=== PATIENT | male | born 1955 | race African-American/Black ===

== ENCOUNTER 2025-03-03 12:47 | Inpatient (IN) | payer MEDICARE ==
[~2025-03-03] VITALS: Ht 175.3 cm; Wt 64.9 kg
[2025-03-03 14:15] LABS: PLATELET COUNT (AUTO) 149 K/uL (150-450); RED BLOOD CELL COUNT(AUTO) 4.08 MIL/uL (4.5-6.0); RED CELL DISTRIBUTION WIDTH 14.5 % (11.5-15.0); WHITE BLOOD COUNT (AUTO) 8.3 K/uL (4.3-11.0)
[2025-03-03 14:27] LABS: ASPARTATE AMINOTRANSFERASE 15 U/L (15-37); CALCIUM, SERUM 8.7 mg/dL (8.5-10.1); TOTAL PROTEIN, SERUM 7.6 g/dL (6.4-8.2)
[2025-03-03] MEDS: MAGNESIUM CITRATE 296 ML BOTTLE PO ONE (14:30)
[2025-03-03 14:38] LABS: SODIUM SERUM 139 mmol/L (136-145)
[2025-03-03 14:39] LABS: CREATININE 21.2 mg/dL (0.6-1.3); UREA NITROGEN, BLOOD 116 mg/dL (7-18)
[2025-03-03] MEDS ORDERED: LIDOCAINE 2% JEL UROJET 10 ML MM ONE (14:44)
[2025-03-03] MEDS: LIDOCAINE 2% JEL UROJET 10 ML MM ONE (14:50)
[2025-03-03] MEDS ORDERED: MORPHINE SULFATE INJ 2 MG/ML DISP.SYRIN ONE (15:08)
[2025-03-03] MEDS ORDERED: CALCIUM CHLORIDE 1,000 MG/10 ML DISP.SYRIN ONE (15:13)
[2025-03-03] MEDS ORDERED: SODIUM BICARBONATE SYR 50 MEQ/50 ML DISP.SYRIN ONE (15:13)
[2025-03-03 15:14] LABS: PHOSPHORUS 7.6 mg/dL (2.5-4.9)
[2025-03-03] MEDS ORDERED: INSULIN REGULAR, HUMAN 100 UNIT/ML 10 ML VIAL ONE (15:14)
[2025-03-03] MEDS ORDERED: DEXTROSE 50%-WATER 50 ML DISP.SYRIN ONE (15:17)
[2025-03-03] MEDS: MORPHINE SULFATE INJ 2 MG/ML DISP.SYRIN IV STA (15:29)
[2025-03-03] MEDS: DEXTROSE 50%-WATER 50 ML DISP.SYRIN IV ONE (15:38)
[2025-03-03] MEDS: CALCIUM CHLORIDE 1,000 MG/10 ML DISP.SYRIN IV ONE (15:51)
[2025-03-03] MEDS: INSULIN REGULAR, HUMAN 100 UNIT/ML 10 ML VIAL IV ONE (15:51)
[2025-03-03] MEDS: SODIUM BICARBONATE SYR 50 MEQ/50 ML DISP.SYRIN IV ONE (15:53)
[2025-03-03] MEDS ORDERED: FUROSEMIDE 20 MG/2 ML VIAL ONE (15:54)
[2025-03-03] MEDS: FUROSEMIDE 40 MG/4 ML VIAL IV ONE (15:56)
[2025-03-03] MEDS ORDERED: MAGNESIUM CITRATE 296 ML BOTTLE ONE (15:57)
[2025-03-03] MEDS ORDERED: SODIUM ZIRCONIUM CYCLOSILICATE 10 GM POWD.PACK ONE (15:57)
[2025-03-03] MEDS: SODIUM ZIRCONIUM CYCLOSILICATE 10 GM POWD.PACK PO ONE (16:00)
[2025-03-03 17:15] VITALS: BP 155/92; TEMP 97.7; O2SAT 96
[2025-03-03] MEDS ORDERED: ONDANSETRON HCL/PF 4 MG/2 ML VIAL IVP PRN (17:30)
[2025-03-03] MEDS ORDERED: Z GUARD REMEDY 4 OZ OINT TP PRN (17:30)
[2025-03-03] MEDS ORDERED: ACETAMINOPHEN 325 MG TABLET PO PRN (17:30)
[2025-03-03 18:07] LABS: CALCIUM, SERUM 9.7 mg/dL (8.5-10.1); SODIUM SERUM 142 mmol/L (136-145)
[2025-03-03 18:18] LABS: CREATININE 21.6 mg/dL (0.6-1.3); UREA NITROGEN, BLOOD 117 mg/dL (7-18)
[2025-03-03 18:37] LABS: APPEARANCE,URINE CLEAR (CLEAR); BLOOD, URINE 3+ Ery/uL (NEGATIVE); LEUKOCYTE ESTERASE ,URINE 1+ (NEGATIVE); NITRITE, URINE NEGATIVE (NEGATIVE); UGLUCOSE NEGATIVE (NEGATIVE)
[2025-03-03 18:57] LABS: ADD URINE CULTURE YES; SQUAMOUS EPITHELIAL CELL,UR 0-2 /HPF (None Seen)
[2025-03-03 20:00] VITALS: BP 155/99; TEMP 98.1; O2SAT 95
[2025-03-03] MEDS: ZOLPIDEM TARTRATE 5 MG TABLET PO PRN (21:20)
[2025-03-03] MEDS: HYDROCODONE/APAP 5/325MG TABLET PO PRN (21:47)
[2025-03-03] MEDS: IV 1/2NS 1000 ML 1,000 ML IV PRN (21:57)
[2025-03-04 04:00] VITALS: BP 140/97; TEMP 97.7; O2SAT 94
[2025-03-04 07:38] LABS: PLATELET COUNT (AUTO) 162 K/uL (150-450); RED BLOOD CELL COUNT(AUTO) 4.69 MIL/uL (4.5-6.0); RED CELL DISTRIBUTION WIDTH 14.6 % (11.5-15.0); WHITE BLOOD COUNT (AUTO) 8.4 K/uL (4.3-11.0)
[2025-03-04] MEDS: MORPHINE SULFATE INJ 2 MG/ML DISP.SYRIN IV PRN (07:55)
[2025-03-04 08:00] VITALS: BP 159/113; TEMP 97.6; O2SAT 96
[2025-03-04 08:03] LABS: CALCIUM, SERUM 9.6 mg/dL (8.5-10.1); CREATININE 5.1 mg/dL (0.6-1.3); PHOSPHORUS 4.2 mg/dL (2.5-4.9); SODIUM SERUM 144.0 mmol/L (136-145); UREA NITROGEN, BLOOD 51.0 mg/dL (7-18)
[2025-03-04 08:14] LABS: LDL 129.0 mg/dL (0-99)
[2025-03-04] MEDS: LIDOCAINE 2% JEL UROJET 10 ML MM ONE (11:52)
[2025-03-04 14:32] LABS: FREE PSA 14.61 ng/mL (0.00-45); PROSTATE SPECIFIC ANTIGEN SCR 254.7 ng/mL (0.00-4.00)
[2025-03-04 16:00] VITALS: BP 127/86; TEMP 97.8; O2SAT 95
[2025-03-04 18:16] LABS: CALCIUM, SERUM 9.6 mg/dL (8.5-10.1); CREATININE 2.9 mg/dL (0.6-1.3); SODIUM SERUM 144.0 mmol/L (136-145); UREA NITROGEN, BLOOD 35.0 mg/dL (7-18)
[2025-03-04 20:00] VITALS: BP 132/100; TEMP 97.7; O2SAT 95
[2025-03-04] MEDS: TAMSULOSIN 0.4 MG CAP.SR.24H PO SCH (21:05)
[2025-03-04] MEDS: FINASTERIDE (5 MG) 5 MG TABLET PO SCH (21:05)
[2025-03-05 03:07] LABS: HEPATITIS B CORE AB, IgM Negative (Negative); HEPATITIS B CORE AB, TOTAL Negative (Negative)
[2025-03-05 04:00] VITALS: BP 106/71; TEMP 98.6; O2SAT 92
[2025-03-05 08:10] LABS: PLATELET COUNT (AUTO) 142 K/uL (150-450); RED BLOOD CELL COUNT(AUTO) 4.74 MIL/uL (4.5-6.0); RED CELL DISTRIBUTION WIDTH 14.6 % (11.5-15.0); WHITE BLOOD COUNT (AUTO) 8.5 K/uL (4.3-11.0)
[2025-03-05 08:13] VITALS: BP 114/81; TEMP 98.5; O2SAT 92
[2025-03-05 08:15] LABS: ASPARTATE AMINOTRANSFERASE 15.0 U/L (15-37); CALCIUM, SERUM 8.5 mg/dL (8.5-10.1); CREATININE 1.0 mg/dL (0.6-1.3); PHOSPHORUS 2.7 mg/dL (2.5-4.9); SODIUM SERUM 141.0 mmol/L (136-145); TOTAL PROTEIN, SERUM 7.4 g/dL (6.4-8.2); UREA NITROGEN, BLOOD 17.0 mg/dL (7-18)
[2025-03-05 08:20] LABS: CREATINE KINASE, TOTAL 157.0 U/L (39-308)
[2025-03-05] MEDS ORDERED: IOHEXOL-300 100 ML VIAL IV ONE (15:34)
[2025-03-05] MEDS ORDERED: IV NS 0.9% 250 ML IV ONE (15:34)
[2025-03-05 16:00] VITALS: BP 120/77; TEMP 97.7; O2SAT 92
[2025-03-05 20:00] VITALS: BP 124/85; TEMP 97.7; O2SAT 94
[2025-03-06 01:10] LABS: CARCINOEMBRYONIC ANTIGEN (CEA) 8.6 ng/mL (0.0-4.7)
[2025-03-06 04:00] VITALS: BP 115/74; TEMP 98.4; O2SAT 95
[2025-03-06 05:11] LABS: PTH, INTACT 29 pg/mL (15-65)
[2025-03-06 08:00] VITALS: BP 110/78; TEMP 97.7; O2SAT 98
[2025-03-06 08:03] LABS: PLATELET COUNT (AUTO) 126 K/uL (150-450); RED BLOOD CELL COUNT(AUTO) 4.51 MIL/uL (4.5-6.0); RED CELL DISTRIBUTION WIDTH 14.6 % (11.5-15.0); WHITE BLOOD COUNT (AUTO) 11.2 K/uL (4.3-11.0)
[2025-03-06 11:09] LABS: IMMUNOGLOBULIN A, SERUM 412 mg/dL (61-437); IMMUNOGLOBULIN M, SERUM 54 mg/dL (15-143)
[2025-03-06 16:00] VITALS: BP 111/82; TEMP 97.7; O2SAT 98
[2025-03-06 22:00] VITALS: BP 123/79; TEMP 98.2; O2SAT 98
[2025-03-07 04:12] VITALS: BP 118/80; TEMP 97.7; O2SAT 99
[2025-03-07 08:00] VITALS: BP 111/85; TEMP 97.9; O2SAT 99
[2025-03-07 11:11] LABS: FREE KAPPA LT CHAINS SERUM 32.9 mg/L (3.3-19.4); FREE LAMBDA LT CHAIN SERUM 14.1 mg/L (5.7-26.3); KAPPA/LAMBDA RATIO SERUM 2.33 (0.26-1.65)
[2025-03-07 16:00] VITALS: BP 128/86; TEMP 97.8; O2SAT 99
[2025-03-07 20:00] VITALS: BP 119/75; TEMP 98.1; O2SAT 98
[2025-03-08 04:00] VITALS: BP 113/75; TEMP 98.2; O2SAT 98
[2025-03-08 07:24] LABS: PLATELET COUNT (AUTO) 122 K/uL (150-450); RED BLOOD CELL COUNT(AUTO) 4.17 MIL/uL (4.5-6.0); RED CELL DISTRIBUTION WIDTH 13.9 % (11.5-15.0); WHITE BLOOD COUNT (AUTO) 8.5 K/uL (4.3-11.0)
[2025-03-08 08:00] VITALS: BP 119/72; TEMP 97.6; O2SAT 97
[2025-03-08 09:10] LABS: *SPE A/G RATIO 1.1 (0.7-1.7); *SPE ALBUMIN 3.7 g/dL (2.9-4.4); *SPE ALPHA-1-GLOBULIN 0.3 g/dL (0.0-0.4); *SPE ALPHA-2-GLOBULIN 0.7 g/dL (0.4-1.0); *SPE BETA GLOBULIN 1.2 g/dL (0.7-1.3); *SPE GLOBULIN, TOTAL 3.5 g/dL (2.2-3.9); *SPE M-SPIKE Not Observed g/dL (Not Observed); *SPE PROTEIN TOTAL 7.2 g/dL (6.0-8.5); *SPEGAMMA GLOBULIN 1.3 g/dL (0.4-1.8)
[2025-03-08 10:07] LABS: *SPE A/G RATIO 1.1 (0.7-1.7); *SPE ALBUMIN 4.2 g/dL (2.9-4.4); *SPE ALPHA-1-GLOBULIN 0.4 g/dL (0.0-0.4); *SPE ALPHA-2-GLOBULIN 0.7 g/dL (0.4-1.0); *SPE BETA GLOBULIN 1.3 g/dL (0.7-1.3); *SPE GLOBULIN, TOTAL 3.8 g/dL (2.2-3.9); *SPE M-SPIKE Not Observed g/dL (Not Observed); *SPE PROTEIN TOTAL 8.0 g/dL (6.0-8.5); *SPEGAMMA GLOBULIN 1.4 g/dL (0.4-1.8)
== END 2025-03-08 16:35 | DRG 641 ==
LOC: ER 12:50 → EDBD 12:50 → MEDSG1 15:00
DX: E87.5 Hyperkalemia (principal); Z59.00 Homelessness unspecified; N17.9 Acute kidney failure, unspecified; I10 Essential (primary) hypertension; N13.30 Unspecified hydronephrosis; D72.821 Monocytosis (symptomatic); M89.9 Disorder of bone, unspecified; R59.0 Localized enlarged lymph nodes; N32.9 Bladder disorder, unspecified; N40.1 Benign prostatic hyperplasia with lower urinary tract symptoms; N32.89 Other specified disorders of bladder; M89.8X9 Other specified disorders of bone, unspecified site; Z80.42 Family history of malignant neoplasm of prostate; F17.200 Nicotine dependence, unspecified, uncomplicated; K59.00 Constipation, unspecified
CPT/HCPCS: 36415; 71045-TC; 71250-TC; 71260-TC; 76770-TC; 78306-TC; 80048-TC; 80053-TC; 80061-TC; 80076-TC; 81001; 82378; 82550-TC; 82784; 83690-TC; 83735-TC; 83970; 84100-TC; 84153-TC; 84154-TC; 84155; 84165; 84443-TC; 85025-TC; 86334; 86704; 86705; 86707; 86803; 87086-TC; 87340; 87350; 97112-TC; 97116-TC; 97530-TC; A9503; G0378; J1815; J1938; J2270; J3490; J7030; J7050; Q9967